=== PATIENT | male | born 1995 | race Caucasian/White ===

== ENCOUNTER 2017-04-30 16:21 | Emergency (ER) | payer MEDICAID ==
[~2017-04-30] VITALS: Ht 182.9 cm; Wt 81.1 kg
[2017-04-30 16:23] VITALS: BP 131/78
[2017-04-30 17:59] LABS: PATH.CAST-FLAG NOT PRESENT; SPERM-FLAG NOT PRESENT; SRC-FLAG NOT PRESENT; XTAL-FLAG NOT PRESENT; YLC-FLAG NOT PRESENT
[2017-04-30] MEDS ORDERED: CEFTRIAXONE 250 MG IM ONE (18:30)
[2017-04-30] MEDS ORDERED: AZITHROMYCIN 500 MG TABLET PO ONE (18:30)
[2017-04-30] MEDS ORDERED: CEFTRIAXONE 250 MG ONE (18:32)
[2017-04-30] MEDS ORDERED: AZITHROMYCIN 500 MG TABLET ONE (18:32)
== END 2017-04-30 18:44 | disposition home or self-care (01) ==
LOC: ED 18:38
DX: N39.0 Urinary tract infection, site not specified (principal); A64 Unspecified sexually transmitted disease
CPT/HCPCS: 81001; 87086; 87491; 87591; 96372; 99284; J0696

== ENCOUNTER 2017-07-04 16:02 | Inpatient (IN) | payer MEDICAID ==
[~2017-07-04] VITALS: Ht 182.9 cm; Wt 88.2 kg
[2017-07-04] MEDS ORDERED: SODIUM CHLORIDE FLUSH 10ML SYR IVF ONE (16:30)
[2017-07-04] MEDS ORDERED: ONDANSETRON 2MG/ML, 2ML IVPush ONE (16:30)
[2017-07-04] MEDS ORDERED: SODIUM CHLORIDE 0.9% 1,000ML IVBOLUS ONE ×2 (16:30→19:00)
[2017-07-04] MEDS ORDERED: FAMOTIDINE 20 MG/2 ML IVP ONE (16:30)
[2017-07-04] MEDS ORDERED: AZITHROMYCIN 500 MG TABLET PO ONE (16:30)
[2017-07-04] MEDS ORDERED: CEFTRIAXONE 250 MG IM ONE (16:30)
[2017-07-04] MEDS ORDERED: CEFTRIAXONE 250 MG ONE (16:34)
[2017-07-04] MEDS ORDERED: FAMOTIDINE 20 MG/2 ML ONE (16:35)
[2017-07-04] MEDS ORDERED: AZITHROMYCIN 250 MG TABLET ONE (16:35)
[2017-07-04] MEDS ORDERED: ONDANSETRON 2MG/ML, 2ML ONE (16:35)
[2017-07-04 16:58] LABS: HEMATOCRIT 45.3 % (39.2-51.8); HEMOGLOBIN 15.3 g/dL (13.7-18.0); WHITE BLOOD COUNT 18.3 x10^3/uL (3.4-10)
[2017-07-04 17:07] LABS: BLOOD UREA NITROGEN 23 mg/dL (7-18)
[2017-07-04 17:11] LABS: ASPARTATE AMINO TRANSFERASE 57 U/L (15-37)
[2017-07-04 17:32] LABS: DIFF TOTAL CELLS COUNTED 200 CELL DIFF; VERIFY COUNTS? YES
[2017-07-04] MEDS ORDERED: OMNIPAQUE 350 MG/ML, 100ML BOTTLE ONE (18:14)
[2017-07-04] MEDS ORDERED: SODIUM CHLORIDE 0.9% 1,000 ML IV ONE (18:49)
[2017-07-04] MEDS ORDERED: SODIUM CHLORIDE FLUSH 10ML SYR IVF PRN (19:00)
[2017-07-04] MEDS ORDERED: ACETAMINOPHEN 325 MG TABLET PO PRN (19:30)
[2017-07-04] MEDS ORDERED: ONDANSETRON ODT 4 MG PO PRN (19:30)
[2017-07-04] MEDS ORDERED: DOCUSATE 100 MG CAPSULE PO PRN (19:30)
[2017-07-04] MEDS ORDERED: ONDANSETRON 2MG/ML, 2ML IVPush PRN (19:30)
[2017-07-04] MEDS ORDERED: TEMAZEPAM 15 MG CAPSULE PO PRN (19:30)
[2017-07-04] MEDS ORDERED: LACTATED RINGERS 1,000 ML IV SCH (19:30)
[2017-07-04] MEDS ORDERED: LABETALOL 5MG/ML, 20ML IVPush PRN (19:30)
[2017-07-04 19:49] VITALS: BP 114/72
[2017-07-04] MEDS: NICOTINE 14MG/24 HR PATCH.TD24 TD SCH (20:37)
[2017-07-04 22:12] VITALS: BP 114/72
[2017-07-05 01:24] VITALS: BP 102/66
[2017-07-05] MEDS: FAMOTIDINE 20 MG/2 ML IVPush SCH ×3 (04:32→21:28)
[2017-07-05 05:46] LABS: ASPARTATE AMINO TRANSFERASE 37 U/L (15-37); BLOOD UREA NITROGEN 15 mg/dL (7-18); HEMATOCRIT 42.1 % (39.2-51.8); HEMOGLOBIN 14.2 g/dL (13.7-18.0); WHITE BLOOD COUNT 10.2 x10^3/uL (3.4-10)
[2017-07-05 07:44] VITALS: BP 114/72
[2017-07-05 14:05] VITALS: BP 123/71
[2017-07-05 19:41] VITALS: BP 104/66
[2017-07-05] MEDS: NICOTINE 14MG/24 HR PATCH.TD24 TD SCH (21:28)
[2017-07-06 03:31] VITALS: BP 118/70
[2017-07-06 04:36] LABS: HEMATOCRIT 43.5 % (39.2-51.8); HEMOGLOBIN 14.5 g/dL (13.7-18.0); WHITE BLOOD COUNT 5.5 x10^3/uL (3.4-10)
[2017-07-06 04:46] LABS: BLOOD UREA NITROGEN 15 mg/dL (7-18)
[2017-07-06 07:08] VITALS: BP 116/71
[2017-07-06] MEDS: FAMOTIDINE 20 MG/2 ML IVPush SCH (08:44)
[2017-07-06] MEDS ORDERED: NICO-486 TD (15:04)
[2017-07-06] MEDS ORDERED: ONDA4TAB13 PO (15:04)
[2017-07-06] MEDS ORDERED: TRAM50TA2 PO (15:04)
[2017-07-06] MEDS ORDERED: PNEUMOCOCCAL 23 VACCINE IM-VACC ONE (16:00)
[2017-07-06] MEDS ORDERED: FLU VACC QS2017-18 (36MOS+) UP/PF 0.5 ML IM-VACC ONE (16:00)
[2017-07-06 17:16] VITALS: BP 113/75
== END 2017-07-06 17:59 | disposition home or self-care (01) | DRG 439 ==
LOC: ED 16:38 → EDIP 18:49 → INTOOBSV 18:49 → 3NE 19:46 → OBSVTOIN 07-05 14:10
PROVIDERS: ADMIT Internal Medicine; ATTEND Internal Medicine
DX: K85.90 Acute pancreatitis without necrosis or infection, unspecified (principal); R65.10 Systemic inflammatory response syndrome (SIRS) of non-infectious origin without acute organ dysfunction; A08.4 Viral intestinal infection, unspecified; D72.825 Bandemia; E86.0 Dehydration; F11.10 Opioid abuse, uncomplicated; F17.210 Nicotine dependence, cigarettes, uncomplicated; F19.10 Other psychoactive substance abuse, uncomplicated; K29.70 Gastritis, unspecified, without bleeding; N34.1 Nonspecific urethritis
CPT/HCPCS: 36415; 71010; 74177; 76536; 80048; 80053; 81001; 83605; 83690; 83735; 84100; 84145; 85025; 87040; 87491; 87591; 90686; 90732; 93306; G0378; J0696; J2405; Q9967; J7030; J7120; S0028